=== PATIENT | female | born 1935 | race Caucasian/White ===

== ENCOUNTER 2025-04-10 13:30 | Emergency (ER) | payer MEDICARE, BC ==
[~2025-04-10] VITALS: Ht 162.6 cm; Wt 65.8 kg
[2025-04-10 13:41] VITALS: TEMP 98.6
[2025-04-10 14:41] LABS: PLATELET COUNT (AUTO) 235 K/uL (150-450); RED BLOOD CELL COUNT(AUTO) 3.89 MIL/uL (4.0-5.2); RED CELL DISTRIBUTION WIDTH 13.3 % (11.5-15.0); WHITE BLOOD COUNT (AUTO) 7.5 K/uL (4.3-11.0)
[2025-04-10 14:55] LABS: CALCIUM, SERUM 9.6 mg/dL (8.5-10.1); CREATININE 1.1 mg/dL (0.6-1.3); SODIUM SERUM 138 mmol/L (136-145); UREA NITROGEN, BLOOD 25 mg/dL (7-18)
[2025-04-10 15:10] LABS: ASPARTATE AMINOTRANSFERASE 20 U/L (15-37); NT-PRO BNP 2138 pg/mL (0-125); TOTAL PROTEIN, SERUM 7.2 g/dL (6.4-8.2)
[2025-04-10] MEDS ORDERED: AMOX-430 PO (16:32)
[2025-04-10] MEDS ORDERED: AZIT250T13 PO (16:32)
[2025-04-10 16:42] VITALS: BP 125/70; O2SAT 96
== END 2025-04-10 16:40 | disposition left against medical advice (07) ==
LOC: ER 13:32
DX: R91.8 Other nonspecific abnormal finding of lung field (principal); I11.0 Hypertensive heart disease with heart failure; I50.9 Heart failure, unspecified; R06.02 Shortness of breath; E86.0 Dehydration; E87.6 Hypokalemia; E88.09 Other disorders of plasma-protein metabolism, not elsewhere classified; I34.1 Nonrheumatic mitral (valve) prolapse; I44.0 Atrioventricular block, first degree; M19.90 Unspecified osteoarthritis, unspecified site; Z88.2 Allergy status to sulfonamides; Z88.5 Allergy status to narcotic agent; Z88.8 Allergy status to other drugs, medicaments and biological substances; Z90.49 Acquired absence of other specified parts of digestive tract; Z90.710 Acquired absence of both cervix and uterus; Z99.81 Dependence on supplemental oxygen; Z60.2 Problems related to living alone
CPT/HCPCS: 36415; 71045-TC; 80048-TC; 80076-TC; 83880; 84484-TC; 85025-TC